=== PATIENT | female | born 1940 | race Caucasian/White ===

== ENCOUNTER 2019-08-18 14:54 | Outpatient (REF) | payer OTHER, SELFPAY ==
[2019-08-18 15:33] LABS: HCT 45.7 % (36.0-46.0); HGB 15.3 g/dL (12.0-15.5); Mean Corp. HGB Concentration 33.5 g/dL (32.0-36.0); Mean Corpuscular Volume 89.6 fL (80-95); Mean Platelet Volume 11.2 fL (8.0-11.0); Platelet Count 174 x1000/uL (130-400); RBC Distribution Width 13.3 % (11.7-14.6); White Blood Cell Count 6.73 k/cumm (4.4-10.8)
[2019-08-18 16:05] LABS: ALT 25 U/L (14-59); AST 18 U/L (15-37); Alkaline Phosphatase 75 U/L (46-116); Anion Gap 7.5 mmol/L (3-11); BUN 15 mg/dL (7-18); Bilirubin, Total 0.7 mg/dL (0.2-1.0); CO2 29.5 mmol/L (21.0-32.0); CREATININE 1.09 mg/dL (0.55-1.02); Calcium 9.2 mg/dL (8.5-10.1); Calculated LDL 137 mg/dL (<100); Chloride 106 mmol/L (98-107); Cholesterol 215 mg/dL (<200); Glucose 112 mg/dL (74-106); HDL Cholesterol 51 mg/dL (40-60); Potassium 4.1 mmol/L (3.5-5.1); Sodium 143 mmol/L (136-145); Total Protein 6.8 g/dL (6.4-8.2); Triglyceride 136 mg/dL (<150)
== END 2019-08-18 15:14 ==
LOC: NCHCN 14:54
PROVIDERS: PCP Nurse Practitioner; Visit Provider Nurse Practitioner Family
DX: E78.5 Hyperlipidemia, unspecified (principal); R30.0 Dysuria
CPT/HCPCS: 80053; 80061; 85027; 87077; 87086; 87186

== ENCOUNTER 2020-09-11 21:58 | Outpatient (REF) | payer OTHER, SELFPAY ==
[2020-09-11 21:30] LABS: Hemoglobin A1C 5.8 % (<5.7)
[2020-09-11 21:37] LABS: ALT 17 U/L (14-59); AST 8 U/L (15-37); Alkaline Phosphatase 90 U/L (46-116); Anion Gap 9.1 mmol/L (3-11); BUN 14 mg/dL (7-18); Bilirubin, Total 0.4 mg/dL (0.2-1.0); CO2 27.9 mmol/L (21.0-32.0); CREATININE 1.1 mg/dL (0.55-1.02); Calcium 9.2 mg/dL (8.5-10.1); Calculated LDL 137 mg/dL (<100); Chloride 106 mmol/L (98-107); Cholesterol 235 mg/dL (<200); Estimated GFR 47.67 (mL/min/1.73m2); Glucose 118 mg/dL (74-106); HDL Cholesterol 46 mg/dL (40-60); Potassium 4.3 mmol/L (3.5-5.1); Sodium 143 mmol/L (136-145); Total Protein 6.6 g/dL (6.4-8.2); Triglyceride 261 mg/dL (<150)
== END 2020-09-11 21:59 | disposition home or self-care (01) ==
LOC: NCHCN 21:58
PROVIDERS: PCP Nurse Practitioner; Visit Provider Nurse Practitioner
DX: E78.5 Hyperlipidemia, unspecified (principal); R03.0 Elevated blood-pressure reading, without diagnosis of hypertension
CPT/HCPCS: 80053; 80061; 83036

== ENCOUNTER 2021-07-23 09:50 | Outpatient (REF) | payer OTHER, SELFPAY ==
[2021-07-23 16:23] LABS: HGB 14.4 g/dL (11.2-15.7); MCH 29.2 pg (27.0-33.0); MCV 91 fL (80-95); MPV 11.7 fL (8.0-11.0); Platelet Count 145 10^3/uL (130-400); RBC 4.93 10^6/uL (3.93-5.22); RDW 12.5 % (11.7-14.6); RDW-SD 41.7 fL; WBC 5.88 10^3/uL (4.4-10.8)
[2021-07-23 16:41] LABS: Hemoglobin A1C 5.8 % (<5.7)
[2021-07-23 17:12] LABS: Anion Gap 7.6 mmol/L (3-11); BUN 16 mg/dL (7-18); CO2 28.4 mmol/L (21.0-32.0); CREATININE 0.9 mg/dL (0.55-1.02); Calcium 8.8 mg/dL (8.5-10.1); Calculated LDL 114 mg/dL (<100); Chloride 108 mmol/L (98-107); Cholesterol 183 mg/dL (<200); Estimated GFR 59.94 (mL/min/1.73m2); Glucose 105 mg/dL (74-106); HDL Cholesterol 45 mg/dL (40-60); Potassium 4.5 mmol/L (3.5-5.1); Sodium 144 mmol/L (136-145); TSH 2.87 uIU/mL (0.36-3.74); Triglyceride 121 mg/dL (<150)
== END 2021-07-23 09:51 | disposition home or self-care (01) ==
LOC: NCHCN 09:50
PROVIDERS: PCP Nurse Practitioner; Visit Provider Physician Assistant
DX: R73.03 Prediabetes (principal); R03.0 Elevated blood-pressure reading, without diagnosis of hypertension; E78.5 Hyperlipidemia, unspecified
CPT/HCPCS: 80048; 80061; 85027; 83036; 84443

== ENCOUNTER 2022-01-20 09:31 | Emergency (ER) | payer OTHER, SELFPAY ==
[2022-01-20 09:33] VITALS: BP 171/64; PULSE 61; RESP 16; TEMP 36.3; O2SAT 98
--- NOTE | 2022-01-20 09:45 | DI.CT_ITS ---
Exam(s) CT HEAD WO EXAM: CT HEAD WO CLINICAL HISTORY: headache, fall and hit head. TECHNIQUE: Imaging Protocol: Axial computed tomography images with coronal and sagittal reformatted images were created and reviewed COMPARISON: No exams were available for comparison FINDINGS: There is moderate generalized cerebral atrophy and there are patchy areas of decreased attenuation i n periventricular white matter consistent with microvascular ischemic changes.. No evidence of acute intracranial hemorrhage, mass effect, or midline shift. The orbital structures are unremarkable. The temporal bone structures appear intact. Calvarium: Normal. Visualized Paranasal sinuses/Mastoids: Clear. IMPRESSION: No evidence of acute intracranial process. RADIATION DOSE DELIVERED: 701.9mGy.cm Total DLP 701.9mGy.cm Total DLP DATA REPOSITORY: All CT scans at this facility are submitted to the National Radiology Data Registry (NRDR) Dose Index Registry (DIR) with the [employer] ([employer]). RADIATION OPTIMIZATION: All CT scans at this facility use at least one of these dose optimization te chniques: automated exposure control; mA and/or kV adjustment per patient size (includes targeted exa ms where dose is matched to clinical indication); or iterative reconstruction.
--- NOTE | 2022-01-20 09:45 | DI.RAD_ITS ---
Exam(s) XR HAND RT COMPLETE EXAM: XR HAND RT COMPLETE CLINICAL HISTORY: pain 1st and 2nd MCP TECHNIQUE: COMPARISON: No exams were available for comparison FINDINGS: Three views were obtained. There are severe degenerative changes of the IP joints and also of the mu ltangular metacarpal joints. No evidence of acute fracture or dislocation. IMPRESSION: RADIATION DOSE DELIVERED: Total DLP
[2022-01-20] MEDS: Acetaminophen 325 MG TAB 650 MG PO (10:09)
--- NOTE | 2022-01-20 10:53 | DI.VRAD_ITS ---
PROCEDURE INFORMATION: Exam: CT Head Without Contrast Exam date and time: 01/20/2022 10:22 AM Age: 81 years old Clinical indication: Other: Pain 1st and 2nd mcp TECHNIQUE: Imaging protocol: Computed tomography of the head without contrast. Radiation optimization: All CT scans at this facility use at least one of these dose optimization techniques: automated exposure control; mA and/or kV adjustment per patient size (includes targeted exams where dose is matched to clinical indication); or iterative reconstruction. COMPARISON: No relevant prior studies available. FINDINGS: Brain: No acute intracranial hemorrhage, midline shift or mass effect. Age-related atrophy. Periventricular and subcortical white matter hypodensities, nonspecific and likely related to chronic microvascular ischemic changes. No CT findings of an acute large territorial infarct. Cerebral ventricles: Ventricular prominence secondary to age-related atrophy. Paranasal sinuses: Minimal mucosal thickening of ethmoid and right sphenoid sinuses. Mastoid air cells: Visualized mastoid air cells are well aerated. Bones/joints: No acute abnormality. Soft tissues: No acute abnormality. Vasculature: Intracranial arterial calcifications. IMPRESSION: No acute intracranial abnormality. Additional findings as discussed above. Dictated and Authenticated by: Matheus Ramirez MD. Ordering:ELOISA Cardona MD
--- NOTE | 2022-01-20 11:04 | DI.VRAD_ITS ---
PROCEDURE INFORMATION: Exam: XR Right Hand Exam date and time: 01/20/2022 10:32 AM Age: 81 years old Clinical indication: Other: Pain 1st and 2nd mcp TECHNIQUE: Imaging protocol: Radiologic exam of the Right hand. Views: 3 or more views. COMPARISON: No relevant prior studies available. FINDINGS: Bones/joints: Osteopenia. No acute fracture or dislocation. 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 Moderate/severe osteoarthritis at 2nd metacarpophalangeal joint. [id number] osteoarthritic changes at multiple interphalangeal joints. Soft tissues: Soft tissue swelling dorsal to MCP joints and along dorsomedial wrist, possibly due to joint effusion(s) and/or synovitis. IMPRESSION: Degenerative changes as described. Dictated and Authenticated by: Matheus Ramierz MD. Ordering:ELOISA Cardona MD
--- NOTE | 2022-01-20 11:05 | ED.GENADUL_ITS ---
Discharge Plan Disposition Patient Disposition: Home Condition: Stable Discharge Details Clinical Impression: Contusion of hand, right, Acute head trauma, Fall, Abrasion of nose Primary Care Provider: Shazia Salguero ED Provider: Brendan Chris Home Meds and New Rx's Prescriptions: Continued joint formula 2 DAILY Label Comments: 11/20/15 Takes 1-2 daily. CG vitamin E mixed 400 UNIT tablet 400 unit PO DAILY BIO C 1,000 mg PO DAILY Label Comments: 11/20/15 Takes occasionally. CG OS-ANAY 500+D TABLET CHEWABLE 1 EACH TAB.CHEW 1 ea PO DAILY Label Comments: 11/20/15 Not taking at present. CG zoster vaccine live (PF) [Zostavax (PF)] 19,400 UNIT/0.65 ML suspension for reconstitution 19,400 unit SQ ONCE Qty: 1 Rx Instructions: and administer, please evening primrose oil 500 MG capsule BID acetaminophen [Arthritis Pain Relief (acetam)] 650 MG tablet extended release 1 tab-cap PO DAILY PRN Label Comments: 10/06/14 Only takes when she is really hurting. CG melatonin-pyridoxine (vit B6) 1 TAB tablet 3 tab PO PRN Label Comments: 11/20/15 Takes 2 PRN. CG echinacea-barger seal 1 EACH capsule 1 ea PO PRN Label Comments: 11/20/15 Takes occasionally. CG Liver with Iron 1 EACH tablet 2 cap PO DAILY PRN Label Comments: 11/20/15 Takes 1 daily. CG losartan 25 mg Tablet 25 mg PO BID Discharge Instructions Additional Instructions: Please take acetaminophen (tylenol) - 650mg every 6 hours by mouth as needed for pain. Use hand splint for comfort. Please contact your primary care physician to arrange follow-up. Return to the ER immediately for any worsening or new concerning symptoms. Referrals: Shazia Salguero [Primary Care Provider] - Discharge Data Discharge Date/Time-TO BE ENTERED AT DEPARTURE: 01/20/22 11:28 Medical Decision Making 81-year-old female presents after mechanical trip and fall with injury to right hand as well as head trauma. Considered acute life-threatening intracranial traumatic hemorrhage. CT of the head was interpreted by radiology: No acute intracranial abnormality. Age- related atrophy. Periventricular and subcortical white matter hypodensities nonspecific and likely related to chronic microvascular ischemic changes. Patient has pain and tenderness right first and second MCPs. Consider fracture. Xr right hand was reviewed and interpreted by me: Chronic degenerative disease, no fracture. I suspect patient has a hand contusion. A volar splint was applied to first and second digits to provide support. Plan for discharge with outpatient follow-up with PCP. Usual customary discharge instructions reviewed with the patient. Sign Out No HPI General Date/Time Provider Initiated Documentation: 01/20/22 09:45 . Limitations to Documentation: no limitations . Information obtained by: patient . HPI Narrative: 81-year-old female presents after mechanical trip and fall with cc injury to right hand. Patient notes that she was walking and brace for droop foot not moving smoothly and elevated foot appropriately and she tripped and fell. Edithdinorah t also notes head trauma during fall. Patient denies LOC. Right hand pain is moderate and worse on palpation. No associated numbness or tingling. Related Data Home Medications Medication Instructions Recorded Confirmed acetaminophen 650 mg 1 tab-cap PO DAILY PRN 08/19/12 01/20/22 tablet,extended release (Arthritis Pain Relief (acetaminophen) ER) echinacea-barger seal 350 mg-100 1 ea PO PRN 08/19/12 12/09/17 mg capsule evening primrose oil 500 mg capsule BID 08/19/12 12/09/17 iron fum-liver ext-B complex-C 2 cap PO DAILY PRN 08/19/12 01/20/22 tablet (Liver with Iron tablet) melatonin 3 mg-pyridoxine (vitamin 3 tab PO PRN 08/19/12 12/09/17 B6) 2 mg tablet Bio C 1,000 mg PO DAILY 09/22/13 01/20/22 Joint Formula 2 DAILY 09/22/13 12/09/17 Os-Anay 500+D Tablet Chewable 1 ea PO DAILY 09/22/13 01/20/22 vitamin E mixed 400 unit tablet 400 unit PO DAILY 09/22/13 01/20/22 zoster vaccine live (PF) 19,400 19,400 unit SQ ONCE #1 vial 02/15/16 12/09/17 unit/0.65 mL subcutaneous suspension (Zostavax (PF)) losartan 25 mg tablet 25 mg PO BID 01/20/22 01/20/22 Allergies Allergy/AdvReac Type Severity Reaction Status Date / Time aspirin Allergy Mild epistaxis Verified 01/20/22 09:40 codeine Allergy Unknown Verified 01/20/22 09:40 General Stated Complaint: Trauma ROSSY: 3 Review of Systems All systems reviewed & are unremarkable except as noted in HPI and below Constitutional Constitutional: Denies headache(s) ENT Ears, Nose, Mouth, and Throat: Denies headache(s) Musculoskeletal Musculoskeletal: Reports as per HPI Neurologic Neurologic: Denies headache(s) PFSH All Active Problems Contusion of hand, right (Acute) Acute head trauma (Acute) Fall (Acute) Abrasion of nose (Acute) Unvaccinated for covid-19 (Acute) myopathy (Chronic) Feels she has had poor reactions to medicines due to heritage (small, but there) COVID-19 (Acute) Vitamin D insufficiency (Acute 09/23/13) Spinal stenosis of lumbar region (Acute 09/23/13) hx L L4-5 foot drop Obesity (Acute 09/23/13) Hyperlipemia (Acute 09/23/13) PCEq 15.6%;LDL baseline 162 Foot drop, left foot (Acute 09/23/13) Blood pressure elevated without history of HTN (Acute 07/02/17) Surgical History Vaginal hysterectomy (~1998) Social History Smoking/Tobacco Use Status: Never Smoking risk assessment performed?: Yes Alcohol Intake: never Drug use: Never Substance use type: does not use Do you feel safe at home: Yes Do you feel safe in your relationship?: Yes Exam Const General: cooperative and no acute distress HENMT Head: normocephalic and atraumatic Mouth: moist mucous membranes Neck Neck: trachea midline and supple Resp Auscultation: clear to auscultation bilaterally, no rales, no rhonchi and no wheezes Cardio Rate: regular rate and not tachycardic Rhythm: regular rhythm GI Palpation: soft, not firm, no guarding, no masses, not rigid and nontender Skin General skin exam: no rashes or lesions noted Neuro General: patient alert, patient awake, patient oriented x3 and tone normal Extrem General: no edema Right upper extremity: hand Details: neuromotor exam normal, neurosensory exam normal, tenderness and swelling Location: of the dorsal hand Psych Appearance: grossly normal Mental Status: mental status grossly normal Speech and Movement: speech and movement normal Course Vital Signs Vital signs: Vital Signs Temperature 36.3 C L 01/20/22 09:33 Pulse 61 01/20/22 09:33 Respiratory Rate 16 01/20/22 09:33 Blood Pressure 171/64 H 01/20/22 09:33 Pulse Oximetry 98 01/20/22 09:33 Temperature 36.3 C L 01/20/22 09:33 Temperature Source Tympanic 01/20/22 09:33 Pulse 61 01/20/22 09:33 Respiratory Rate 16 01/20/22 09:33 Respiratory Effort Non-Labored 01/20/22 09:46 Respiratory Depth Normal 01/20/22 09:46 Respiratory Pattern Normal 01/20/22 09:46 Blood Pressure 171/64 H 01/20/22 09:33 Blood Pressure Position Supine 01/20/22 09:33 Pulse Oximetry 98 01/20/22 09:33 Oxygen Delivery Method Room Air 01/20/22 09:33 Oxygen Flow Rate 0 01/20/22 09:33 Pain Level 2 01/20/22 10:09
== END 2022-01-20 11:28 | disposition home or self-care (01) ==
LOC: ER 12:18
PROVIDERS: Emergency Provider Student in an Organized Health Care Education/Training Program; PCP Nurse Practitioner
DX: S60.221A Contusion of right hand, initial encounter (principal); S00.31XA Abrasion of nose, initial encounter; Z86.16 Personal history of COVID-19; W01.10XA Fall on same level from slipping, tripping and stumbling with subsequent striking against unspecified object, initial encounter
CPT/HCPCS: 29130; 99284; 70450; 73130

== ENCOUNTER 2022-10-04 10:55 | Outpatient (REF) | payer OTHER, SELFPAY ==
[2022-10-04 15:55] LABS: HCT 45.3 % (36.0-46.0); HGB 14.8 g/dL (11.2-15.7); MCH 29.7 pg (27.0-33.0); MCHC 32.7 % (32.0-36.0); MCV 91 fL (80-95); MPV 10.7 fL (8.0-11.0); Platelet Count 175 10^3/uL (130-400); RBC 4.99 10^6/uL (3.93-5.22); RDW 13.2 % (11.7-14.6); RDW-SD 43.8 fL; WBC 6.54 10^3/uL (4.4-10.8)
[2022-10-04 16:19] LABS: Hemoglobin A1C 5.8 % (<5.7)
[2022-10-04 16:26] LABS: Anion Gap 9.5 mmol/L (3-11); BUN 12 mg/dL (7-18); CO2 28.5 mmol/L (21.0-32.0); Calcium 9.1 mg/dL (8.5-10.1); Calculated LDL 138 mg/dL (<100); Chloride 107 mmol/L (98-107); Cholesterol 210 mg/dL (<200); Glucose 90 mg/dL (74-106); HDL Cholesterol 53 mg/dL (40-60); Potassium 4.1 mmol/L (3.5-5.1); Sodium 145 mmol/L (136-145); Triglyceride 97 mg/dL (<150)
== END 2022-10-04 10:56 | disposition home or self-care (01) ==
LOC: NCHCN 10:55
PROVIDERS: PCP Physician Assistant; Visit Provider Physician Assistant
DX: E78.5 Hyperlipidemia, unspecified (principal); R03.0 Elevated blood-pressure reading, without diagnosis of hypertension; R73.03 Prediabetes; D64.9 Anemia, unspecified
CPT/HCPCS: 80048; 80061; 85027; 83036

== ENCOUNTER 2023-10-20 16:20 | Outpatient (REF) | payer OTHER, SELFPAY ==
[2023-10-20 19:14] LABS: Anion Gap 9.6 mmol/L (3-11); BUN 17 mg/dL (7-18); CO2 28.4 mmol/L (21.0-32.0); Calcium 9.4 mg/dL (8.5-10.1); Chloride 106 mmol/L (98-107); Estimated GFR 55.55 (mL/min/1.73m2); Glucose 100 mg/dL (74-106); Potassium 4.2 mmol/L (3.5-5.1); Sodium 144 mmol/L (136-145)
[2023-10-20 19:27] LABS: Hemoglobin A1C 5.8 % (<5.7)
== END 2023-10-20 16:21 | disposition home or self-care (01) ==
LOC: NCHCN 16:20
PROVIDERS: PCP Physician Assistant; Visit Provider Physician Assistant
DX: R73.03 Prediabetes (principal)
CPT/HCPCS: 80048; 83036

== ENCOUNTER 2024-07-08 16:49 | Outpatient (CLI) | payer MEDICARE, SELFPAY ==
--- NOTE | 2024-07-08 | DI.RAD_ITS ---
Exam(s) XR CHEST 2V PA LATERAL EXAM: XR CHEST 2V PA LATERAL CLINICAL HISTORY: Cough R05.9. TECHNIQUE: 2D digital imaging was performed. COMPARISON: No exams were available for comparison FINDINGS: 2 views: Heart size is normal. The mediastinum is not widened. Lungs are clear. No infiltrates nor pleural effusions. IMPRESSION: No acute pulmonary findings. DATA REPOSITORY: RADIATION DOSE DELIVERED:
--- NOTE | 2024-07-08 16:38 | DI.VRAD_ITS ---
PROCEDURE INFORMATION: Exam: XR Chest Exam date and time: 07/08/2024 3:57 PM Age: 84 years old Clinical indication: Cough TECHNIQUE: Imaging protocol: Radiologic exam of the chest. Views: 2 views. COMPARISON: No relevant prior studies available. FINDINGS: Lungs: Clear lungs. Pleural spaces: No pneumothorax. No sizable pleural effusion. Heart/Mediastinum: No cardiomegaly. Bones/joints: Unremarkable. IMPRESSION: Clear lungs. Dictated and Authenticated by: Kapil Stubbs MD. Orderin Marilee Sullivan MD
== END 2024-07-08 17:09 ==
PROVIDERS: PCP Physician Assistant; Visit Provider Physician Assistant Medical
DX: R05.9 Cough, unspecified (principal)
CPT/HCPCS: 71046

== ENCOUNTER 2024-10-13 14:41 | Outpatient (REF) | payer MEDICARE, SELFPAY ==
[2024-10-13 16:05] LABS: Hemoglobin A1C 5.5 % (<5.7)
[2024-10-13 16:13] LABS: Anion Gap 7.1 mmol/L (3-11); BUN 15 mg/dL (7-18); CO2 29.9 mmol/L (21.0-32.0); Calcium 9.2 mg/dL (8.5-10.1); Calculated LDL 133 mg/dL (<100); Chloride 108 mmol/L (98-107); Cholesterol 210 mg/dL (<200); Estimated GFR 62.65 (mL/min/1.73m2); Glucose 104 mg/dL (74-106); HDL Cholesterol 48 mg/dL (>or=50); Potassium 4.5 mmol/L (3.5-5.1); Sodium 145 mmol/L (136-145); Triglyceride 149 mg/dL (<150)
== END 2024-10-13 14:42 | disposition home or self-care (01) ==
LOC: NCHCN 14:41
PROVIDERS: PCP Physician Assistant; Visit Provider Physician Assistant
DX: R73.03 Prediabetes (principal); I10 Essential (primary) hypertension
CPT/HCPCS: 80048; 80061; 83036